=== PATIENT | female | born 1955 | race Hispanic/Latino ===

== ENCOUNTER 2023-10-06 19:16 | Emergency (ER) | payer MEDICARE, OTHER ==
[~2023-10-06] VITALS: Ht 154.9 cm; Wt 5.9 kg
[2023-10-06 21:56] VITALS: BP 109/56; PULSE 57; RESP 16; O2SAT 100
== END 2023-10-06 22:00 | disposition home or self-care (01) ==
LOC: EDH 19:16
DX: R10.9 Unspecified abdominal pain (principal); E78.00 Pure hypercholesterolemia, unspecified; Z90.710 Acquired absence of both cervix and uterus
CPT/HCPCS: 93005